=== PATIENT | male | born 1975 ===

== ENCOUNTER → 2018-01-28 | Outpatient (REF) | payer OTHER ==
[2018-01-28 14:39] LABS: PLATELET COUNT, AUTOMATED 240 K/uL (150-450)
== END ==
LOC: ZZSTITCHES 14:24
PROVIDERS: ATTEND Physician Assistant
DX: K56.7 Ileus, unspecified (principal); R10.32 Left lower quadrant pain; K59.01 Slow transit constipation
CPT/HCPCS: 82040; 82247; 82310; 82374; 82435; 82565; 82947; 84075; 84132; 84155; 84295; 84450; 84460; 84520; 85025

== ENCOUNTER 2018-09-12 21:00 | Emergency (ER) | payer OTHER ==
[2018-09-12] MEDS ORDERED: ONDANSETRON 4 MG/2 ML VIAL ONE (21:03)
--- NOTE | 2018-09-12 21:07 | ER Report ---
History and Physical Time Seen By MD: 21:04 HPI/ROS CHIEF COMPLAINT: fall, head injury HISTORY OF PRESENT ILLNESS: This is a 43 year old male. He was drinking today at [employer], went home, then fell backwards, striking the back of his head. Was very dizzy with room spinning after this. Has mild headache. Laceration occipital scalp. No nausea. Normal vision. No weakness, can move everything, and no numbness in face arms or legs. Allergies: Coded Allergies: No Known Drug Allergies (Unverified , 09/12/18) Home Meds No Active Prescriptions or Reported Meds Reviewed Nurses Notes: Yes Constitutional Vital Sign - Last 24 Hours 09/12/18 09/12/18 09/12/18 09/12/18 21:04 21:04 21:30 21:35 Temp 98.1 Pulse 130 85 88 Resp 24 B/P (MAP) 120/68 (85) 120/68 113/75 (88) Pulse Ox 93 88 88 O2 Delivery Room Air 09/12/18 09/12/18 09/12/18 09/12/18 21:50 22:00 22:05 22:20 Pulse 91 91 87 B/P (MAP) 118/77 (91) Pulse Ox 87 86 88 Intake and Output 09/12/18 09/12/18 09/13/18 15:02 23:02 07:02 Intake Total 1000 ml Balance 1000 ml Physical Exam General Appearance: The patient is alert. No acute distress. Intoxicated. Eyes: Pupils are equal, round. Reactive to light. No pallor, injection or icterus. Extraocular movements are intact. ENT: Mucous membranes are moist. Normal oral mucosa. Posterior oropharynx is normal. Neck: Supple and non tender. Respiratory: Lungs are clear to auscultation. Cardiovascular: Regular rate and rhythm. No murmurs, gallops or rubs. Neurological: Alert and oriented x3. Cranial nerves II through XII show no acute deficits on my exam. No focal neurologic deficits in the extremities. Skin: Warm and dry. Laceration about 5cm occipital scalp. Musculoskeletal: Extremities are nontender. No tenderness in palpation of the cervical, thoracic and lumbar spine. DIFFERENTIAL DIAGNOSIS: After history and physical exam, differential diagnosis was considered for fall with head injury and scalp laceration. Intoxication involved as well. Medical Decision Making EKG/Imaging Imaging CT BRAIN NO CONTRAST EXAMINATION: CT head/brain without contrast HISTORY: Fall onto back of head. TECHNIQUE: Contiguous axial images were obtained from the skull base to the vertex without intravenous contrast. One of the following dose optimization techniques was utilized in the performance of this exam: Automated exposure control; adjustment of the mA and/or kV according to the patient's size; or use of an iterative reconstruction technique. Specific details can be referenced in the facility's radiology CT exam operational policy. COMPARISON STUDIES: None FINDINGS: Ventricles/sulci/fissures: Midline in position and normal in configuration. Masses/hemorrhage/midline shift: No hemorrhage. White matter: No white matter edema or contusion. Wooten-white differentiation: Well-maintained with no cerebral edema or contusion. Extra-axial spaces: No subdural or epidural fluid collections. No subarachnoid blood Dural venous sinuses/arterial structures: Negative Skull base/calvarium: No calvarial or skull base abnormality. Right posterior occiput soft tissue contusion/hematoma in the upper right posterior parietal skull. No underlying skull fracture. Visualized mastoid air cells/paranasal sinuses: Negative IMPRESSION: 1. Negative CT scan of the head for acute intracranial pathology. 2. Posterior occiput soft tissue contusion/hematoma. Report Dictated By: Iggy Dent MD at 09/12/2018 9:[address] VERTEBRA CERVICAL (NON CON) EXAMINATION: CT cervical spine Additional pertinent history: Fall COMPARISON STUDIES: None One of the following dose optimization techniques was utilized in the perf ormance of this exam: Automated exposure control; adjustment of the mA and/or kV according to the patient's size; or use of an iterative reconstruction technique. Specific details can be referenced in the facility's radiology CT exam operational policy. TECHNIQUE: Axial images were obtained from the skull base through the upper thoracic spine without IV contrast administration. Coronal and sagittal reformatted images were obtained from the axial source data. FINDINGS: Prevertebral soft tissues: Negative Alignment: There is straightening of the cervical spine with a slight kyphotic curvature centered at the C4 level. Vertebral bodies well-maintained with no compression deformities or fractures. Vertebral bodies: Negative Posterior elements: No facet fracture or disruption. Craniocervical junction is unremarkable. Disc spaces: Disc spaces relatively well-maintained and aligned at all levels. Mild disc space narrowing and degenerative anterior spurring changes at the C6-7 level.. Mild foraminal narrowing changes at the C6-7 level Visualized soft tissues anterior neck: Negative Visualized lung/mediastinum: Lung apices are clear. No pneumothorax. IMPRESSION: 1. Negative cervical spine for acute pathology. 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 Report Dictated By: Iggy Dent MD at 09/12/2018 9:55 PM ED Course/Re-evaluation ED Course Procedure: Laceration Repair Verbal consent from patient after discussing repair options, risks and benefits. Wound cleaned extensively with Hibiclens and saline. Anesthesia: None. Location: Occipital scalp. Length: About 5 cm. Wound repair: Jackson 6. The wound repair was simple and performed by the nurse under my observation. Wound care instructions discussed. Jackson need to be removed in 7 days. Tetanus booster given. Decision to Disposition Date: Sep 12, 2018 Decision to Disposition Time: 21:51 Depart Departure Latest Vital Signs Vital Signs Date Time Temp Pulse Resp B/P (MAP) Pulse Ox O2 Delivery O2 Flow Rate FiO2 09/12/18 22:20 87 88 09/12/18 22:00 118/77 (91) 09/12/18 21:04 98.1 24 Room Air Impression: Primary Impression: Occipital scalp laceration Additional Impression: Alcohol intoxication Condition: Improved Disposition: HOME OR SELF-CARE New Scripts No Active Prescriptions or Reported Meds Patient Instructions: Laceration (ED), Staple Care (ED) Additional Instructions: Wound Care: Wash the wound once a day with soap and water. Dry the wound and apply a small amount of antibiotic ointment with a clean dressing. If the dressing becomes wet or dirty, repeat cleaning and dressing as above. No soaking the wound; no swimming. Ivan need to be removed in 5-7 days. Pain Control: Use Tylenol or ibuprofen for pain. Using and ice pack can help reduce swelling Rest and increase fluid intake. Problem Qualifiers Primary Impression: Occipital scalp laceration Encounter type: initial encounter Qualified Codes: S01.01XA - Laceration without foreign body of scalp, initial encounter Additional Impression: Alcohol intoxication Complication of substance-induced condition: uncomplicated Qualified Codes: F10.920 - Alcohol use, unspecified with intoxication, uncomplicated ERICK JEFFERSON MD Sep 12, 2018 21:07
[2018-09-12] MEDS ORDERED: NS(*) 0.9% 1000 ML BAG 1,000 ML IV ONE (21:16)
[2018-09-12] MEDS ORDERED: DIPHTH/TETANUS/ACEL. PERTUSSIS IM ONLY ONE (21:20)
[2018-09-12 22:00] VITALS: BP 118/77
--- NOTE | 2018-09-12 22:06 | RADIOLOGY IMAGING REPORT ---
FACILITY: [facility] [place] PATIENT NAME: Jose Newman : 1975 MR: [id number] V: [id number] EXAM DATE: ORDERING PHYSICIAN: ERICK JEFFERSON TECHNOLOGIST: Location: [facility] Patient: Jose Newman : 1975 Visit/Account:[id number] Date of Sevice: 09/12/2018 CT BRAIN NO CONTRAST EXAMINATION: CT head/brain without contrast HISTORY: Fall onto back of head. TECHNIQUE: Contiguous axial images were obtained from the skull base to the vertex without intravenou s contrast. One of the following dose optimization techniques was utilized in the performance of this exam: Autom ated exposure control; adjustment of the mA and/or kV according to the patient's size; or use of an i terative reconstruction technique. Specific details can be referenced in the facility's radiology C T exam operational policy. COMPARISON STUDIES: None FINDINGS: Ventricles/sulci/fissures: Midline in position and normal in configuration. Masses/hemorrhage/midline shift: No hemorrhage. White matter: No white matter edema or contusion. Wooten-white differentiation: Well-maintained with no cerebral edema or contusion. Extra-axial spaces: No subdural or epidural fluid collections. No subarachnoid blood Dural venous sinuses/arterial structures: Negative Skull base/calvarium: No calvarial or skull base abnormality. Right posterior occiput soft tissue co ntusion/hematoma in the upper right posterior parietal skull. No underlying skull fracture. Visualized mastoid air cells/paranasal sinuses: Negative IMPRESSION: 1. Negative CT scan of the head for acute intracranial pathology. 2. Posterior occiput soft tissue contusion/hematoma. Report Dictated By: Iggy Dent MD at 09/12/2018 9:37 PM Report E-Signed By: Iggy Dent MD at 09/12/2018 10:00 PM WSN:[email or web address]
--- NOTE | 2018-09-12 22:07 | RADIOLOGY IMAGING REPORT ---
FACILITY: [facility] PATIENT NAME: Jose Newman : 1975 MR: [id number] V: [id number] EXAM DATE: ORDERING PHYSICIAN: ERICK JEFFERSON TECHNOLOGIST: [place] [facility] [place] : 1975 Visit/Account:[id number] Date of Sevice: 09/12/2018 CT VERTEBRA CERVICAL (NON CON) EXAMINATION: CT cervical spine Additional pertinent history: Fall COMPARISON STUDIES: None One of the following dose optimization techniques was utilized in the performance of this exam: Autom ated exposure control; adjustment of the mA and/or kV according to the patient's size; or use of an i terative reconstruction technique. Specific details can be referenced in the facility's radiology C T exam operational policy. TECHNIQUE: Axial images were obtained from the skull base through the upper thoracic spine without IV contrast administration. Coronal and sagittal reformatted images were obtained from the axial source data. FINDINGS: Prevertebral soft tissues: Negative Alignment: There is straightening of the cervical spine with a slight kyphotic curvature centered at the C4 level. Vertebral bodies well-maintained with no compression deformities or fractures. Vertebral bodies: Negative Posterior elements: No facet fracture or disruption. Craniocervical junction is unremarkable. Disc spaces: Disc spaces relatively well-maintained and aligned at all levels. Mild disc space narro wing and degenerative anterior spurring changes at the C6-7 level.. Mild foraminal narrowing changes at the C6-7 level. Visualized soft tissues anterior neck: Negative Visualized lung/mediastinum: Lung apices are clear. No pneumothorax. IMPRESSION: 1. Negative cervical spine for acute pathology. 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 Report Dictated By: Iggy Dent MD at 09/12/2018 9:55 PM Report E-Signed By: Iggy Dent MD at 09/12/2018 10:02 PM WSN:[email or web address]
== END 2018-09-12 23:10 | disposition home or self-care (01) ==
LOC: ER 21:45
DX: S01.01XA Laceration without foreign body of scalp, initial encounter (principal); F10.129 Alcohol abuse with intoxication, unspecified; Z23 Encounter for immunization
CPT/HCPCS: 70450; 72125; 90715; 96360; 96372; 99284; J2405; J7030

== ENCOUNTER → 2018-09-12 | Outpatient (CLI) | payer OTHER | LOC: AMB 20:28 | PROVIDERS: ATTEND Nurse Practitioner | DX: S01.01XA Laceration without foreign body of scalp, initial encounter (principal); W18.30XA Fall on same level, unspecified, initial encounter | CPT/HCPCS: A0425; A0427 ==

== ENCOUNTER → 2018-09-16 | Outpatient (REF) | payer OTHER | PROVIDERS: ATTEND Nurse Practitioner Family | DX: Z02.9 Encounter for administrative examinations, unspecified (principal) ==

== ENCOUNTER → 2018-09-16 | Outpatient (CLI) | payer OTHER ==
--- NOTE | 2018-09-16 15:40 | RADIOLOGY IMAGING REPORT ---
FACILITY: [facility] PATIENT NAME: Jose Newman : 1975 MR: [id number] V: [id number] EXAM DATE: ORDERING PHYSICIAN: JOSE FARNSWORTH TECHNOLOGIST: Location: [facility] Patient: Jose Newman : 1975 Visit/Account:[id number] Date of Sevice: 09/16/2018 CT Head without contrast Indication: Dizziness, nausea and vomiting after head trauma. Comparison: 09/12/2018. Technique: Axial CT images were obtained through the brain from the skull base to the vertex without administration of IV contrast. Reformatted coronal and sagittal images were also obtained. One of the following dose optimization techniques was utilized in the performance of this exam: autom ated exposure control; adjustment of the mA and/or kV according to the patient's size; or use of an i terative reconstruction technique. Specific details can be referenced in the facility's radiology CT exam operational policy. Findings: No evidence of mass, mass effect, or midline shift. No acute intracranial hemorrhage or acute territorial infarction. No extra-axial fluid collection or hydrocephalus. No abnormal density. Wooten/white matter differenti ation appears normal. Bony structures show no fractures or lesions. Small subcutaneous hematoma seen about the right later al scalp and the posterior scalp. The posterior scalp also shows skin yudy in place. The visualized paranasal sinuses and mastoid air cells are clear. IMPRESSION: 1. No acute intracranial abnormality. No skull fracture. Report Dictated By: Matty Guy at 09/16/2018 3:29 PM Report E-Signed By: Matty Guy at 09/16/2018 3:34 PM WSN:[email or web address]
== END ==
LOC: CT 14:54
PROVIDERS: ATTEND Nurse Practitioner Family
DX: S09.90XA Unspecified injury of head, initial encounter (principal)
CPT/HCPCS: 70450